=== PATIENT | female | born 1950 | race Caucasian/White ===

== ENCOUNTER 2025-02-25 14:21 | Inpatient (IN) | payer OTHER, MEDICARE ==
[~2025-02-25] VITALS: Ht 167.6 cm; Wt 83.5 kg
[2025-02-25 14:25] VITALS: O2SAT 100
[2025-02-25] MEDS: MAGNESIUM/ALUMINUM HYDROXIDE/SIMETHICONE 30ML UDC PO ONE (14:37)
[2025-02-25] MEDS: ONDANSETRON HCL 4MG/2ML INJ IV ONE (14:52)
[2025-02-25] MEDS: KETOROLAC 15MG/ML VIAL IV ONE (14:53)
[2025-02-25 15:53] LABS: BASOPHILS % 0.4 % (0.0-2.0); EOSINOPHILS % 0.6 % (0.0-5.0); HEMATOCRIT. 39.0 % (36.0-48.0); HEMOGLOBIN. 12.8 g/dL (12.0-16.0); LYMPHOCYTES % 30.3 % (20.0-50.0); MEAN PLATELET VOLUME 7.7 fl (7.4-10.4); MONOCYTES % 4.5 % (2.0-8.0); NEUTROPHILS % 64.2 % (40.0-76.0); PLATELET 213 x1000/uL (130-400); RED BLOOD CELL COUNT 4.56 mill/uL (4.2-5.4); RED CELL DISTRIBUTION WIDTH 14.0 % (11.6-14.6)
[2025-02-25 16:05] LABS: CREATININE 1.5 mg/dL (0.6-1.0)
[2025-02-25 16:06] LABS: ETHANOL BLOOD < 10 mg/dL (<10); PROTEIN TOTAL 6.5 g/dL (6.0-8.3); UREA NITROGEN BLOOD 24 mg/dL (9-23)
[2025-02-25 16:07] LABS: ASPARTATE AMINOTRANSFERASE 19 IU/L (<34)
[2025-02-25 16:08] LABS: BILIRUBIN DIRECT 0.1 mg/dL (<=3.0); BILIRUBIN TOTAL 0.6 mg/dL (0.1-1.0); TROPONIN I HIGH SENSITIVITY < 4 ng/L (3.0-34)
[2025-02-25] MEDS: MORPHINE SULFATE 4 MG/ML INJ (FOR IV/IM USE) IV ONE (18:53)
[2025-02-25] MEDS: KETOROLAC 30MG/ML VIAL IV ONE (18:53)
[2025-02-25 18:59] LABS: CLARITY URINE CLEAR (CLEAR); COLOR URINE YELLOW (YELLOW); GLUCOSE URINE NEGATIVE (NEGATIVE); KETONES URINE TRACE (NEGATIVE); LEUKOCYTE ESTERASE URINE 1+ (NEGATIVE); NITRITE URINE NEGATIVE (NEGATIVE); OCCULT BLOOD URINE TRACE (NEGATIVE); PH URINE 5.5 (4.5-8.0); PROTEIN URINE NEGATIVE (NEGATIVE); SPECIFIC GRAVITY URINE 1.026 (1.005-1.030); UROBILINOGEN URINE 1.0 E.U./dL (0.2-1.0)
[2025-02-25 19:07] LABS: *AMPHETAMINES SCREEN URINE NEGATIVE (NEGATIVE)
[2025-02-25 19:08] LABS: *BARBITURATES SCREEN URINE NEGATIVE (NEGATIVE); *BENZODIAZEPINES SCREEN URINE NEGATIVE (NEGATIVE); *COCAINE SCREEN URINE NEGATIVE (NEGATIVE); CANNABINOID URINE SCREEN NEGATIVE (NEGATIVE); ECSTASY MDMA SCREEN URINE NEGATIVE (NEGATIVE); METHADONE URINE SCREEN NEGATIVE (NEGATIVE); OPIATES URINE SCREEN NEGATIVE (NEGATIVE); PHENCYCLIDINE URINE SCREEN NEGATIVE (NEGATIVE)
[2025-02-25 19:18] LABS: BACTERIA URINE NONE SEEN; SQUAMOUS EPITHELIAL CELL URINE FEW /lpf (RARE/1+)
[2025-02-25] MEDS ORDERED: CEFTRIAXONE 2GM/50ML 50 ML IV ONE (19:30)
[2025-02-25] MEDS ORDERED: ONDANSETRON HCL 4MG/2ML INJ IV PRN (20:00)
[2025-02-25] MEDS ORDERED: IPRATROPIUM/ALBUTEROL 0.5-3(2.5)MG/3ML NEB HHN PRN (20:00)
[2025-02-25 20:10] VITALS: BP 154/90; PULSE 57; RESP 18; TEMP 36.8; TEMP 36.8072; O2SAT 98
[2025-02-25] MEDS: LACTATED RINGERS 1,000 ML IV SCH (21:20)
[2025-02-25] MEDS ORDERED: DEXTROSE 50% WATER 50ML SYRINGE IV PRN (23:00)
[2025-02-26] VITALS (7 sets, daily range): BP systolic 112–176; BP diastolic 57–88; PULSE 52–72; RESP 16–18; TEMP 36.4–36.7; O2SAT 96–100
[2025-02-26] MEDS: AMLODIPINE 2.5MG TABLET PO SCH (00:20)
[2025-02-26] MEDS: PANTOPRAZOLE SODIUM 40 MG/VIAL IV SCH (00:21)
[2025-02-26] MEDS: MAGNESIUM 1 G PREMIX 100 ML IV SCH (00:21)
[2025-02-26] MEDS: ENOXAPARIN 40MG/0.4ML SYR SUBCUT SCH (00:22)
[2025-02-26] MEDS: KETOROLAC 15MG/ML VIAL IV PRN (01:20)
[2025-02-26 01:29] LABS: LDL CHOLESTEROL 163.0 mg/dL (5-100); TRIGLYCERIDE 133.0 mg/dL (0-150)
[2025-02-26] MEDS: CLONIDINE 0.1MG TABLET PO PRN (01:29)
[2025-02-26] MEDS ORDERED: NALOXONE HCL 0.4MG/ML VIAL IV PRN (02:30)
[2025-02-26] MEDS: MORPHINE SULFATE 2 MG/ML INJ (NOT FOR IM USE) IV PRN (03:03)
[2025-02-26] MEDS ORDERED: FAMOTIDINE 20MG/2ML VIAL IV ONE (08:00)
[2025-02-26] MEDS ORDERED: METOCLOPRAMIDE HCL 10MG/2ML VIAL ONE (08:01)
[2025-02-26] MEDS ORDERED: MIDAZOLAM HCL 2 MG/2 ML VIAL ONE (08:02)
[2025-02-26] MEDS ORDERED: PROPOFOL 200MG/20ML VIAL IV ONE (08:06)
[2025-02-26] MEDS ORDERED: FENTANYL CITRATE/PF 50MCG/ML 2ML VIAL ONE (08:06)
[2025-02-26] MEDS ORDERED: HYDROMORPHONE HCL/PF 1MG/ML INJ IV PRN (08:15)
[2025-02-26] MEDS ORDERED: FAMOTIDINE 20MG/2ML VIAL IV PRN (08:15)
[2025-02-26] MEDS ORDERED: MEPERIDINE HCL/PF 25MG/ML CPJ IV PRN (08:15)
[2025-02-26] MEDS ORDERED: ONDANSETRON HCL 4MG/2ML INJ IV PRN (08:15)
[2025-02-26] MEDS ORDERED: LABETALOL 5MG/ML 4ML INJ IV PRN (08:15)
[2025-02-26] MEDS ORDERED: HYDRALAZINE 20MG/ML VIAL IV PRN ×2 (08:15)
[2025-02-26] MEDS ORDERED: AMLODIPINE 5MG TABLET PO SCH (09:00)
[2025-02-26] MEDS: AMLODIPINE 5MG TABLET PO SCH (11:01)
[2025-02-26 11:31] LABS: BASOPHILS % 0.5 % (0.0-2.0); EOSINOPHILS % 1.2 % (0.0-5.0); HEMATOCRIT. 39.4 % (36.0-48.0); HEMOGLOBIN. 12.7 g/dL (12.0-16.0); LYMPHOCYTES % 29.0 % (20.0-50.0); MEAN PLATELET VOLUME 7.7 fl (7.4-10.4); MONOCYTES % 4.5 % (2.0-8.0); NEUTROPHILS % 64.8 % (40.0-76.0); PLATELET 176 x1000/uL (130-400); RED BLOOD CELL COUNT 4.53 mill/uL (4.2-5.4); RED CELL DISTRIBUTION WIDTH 14.5 % (11.6-14.6)
[2025-02-26 11:53] LABS: CREATININE 1.2 mg/dL (0.6-1.0)
[2025-02-26 11:54] LABS: UREA NITROGEN BLOOD 15.0 mg/dL (9-23)
[2025-02-26 11:57] LABS: T4 FREE 1.53 ng/dL (0.89-1.76)
[2025-02-26] MEDS: CEFTRIAXONE 1GM/50ML 50 ML IV SCH (15:08)
[2025-02-26] MEDS ORDERED: CEFTRIAXONE 1GM/50ML 50 ML IV SCH (20:00)
[2025-02-26] MEDS: ATORVASTATIN CALCIUM 40MG TABLET PO SCH (20:39)
[2025-02-27 04:00] VITALS: BP 139/76; PULSE 67; RESP 16; TEMP 36.6; O2SAT 98
[2025-02-27 05:09] LABS: CREATININE 1.0 mg/dL (0.6-1.0); UREA NITROGEN BLOOD 19.0 mg/dL (9-23)
[2025-02-27 05:57] LABS: BASOPHILS % 0.3 % (0.0-2.0); EOSINOPHILS % 1.9 % (0.0-5.0); HEMATOCRIT. 35.6 % (36.0-48.0); HEMOGLOBIN. 11.7 g/dL (12.0-16.0); LYMPHOCYTES % 38.8 % (20.0-50.0); MEAN PLATELET VOLUME 7.9 fl (7.4-10.4); MONOCYTES % 7.2 % (2.0-8.0); NEUTROPHILS % 51.8 % (40.0-76.0); PLATELET 161 x1000/uL (130-400); RED BLOOD CELL COUNT 4.10 mill/uL (4.2-5.4); RED CELL DISTRIBUTION WIDTH 14.4 % (11.6-14.6)
[2025-02-27 08:00] VITALS: BP 135/86; PULSE 69; RESP 16; TEMP 36.2; O2SAT 100
[2025-02-27] MEDS ORDERED: LEVO-65 MT (10:31)
[2025-02-27] MEDS ORDERED: IBUP-1455 MT (10:31)
[2025-02-27 11:39] VITALS: BP 130/76; PULSE 64; RESP 16; TEMP 97.8
== END 2025-02-27 12:00 | disposition home or self-care (01) | DRG 660 ==
LOC: ER 14:21 → 8EST 18:44 → EDBEDREQ 18:48 → EDBEDREQTM 18:48 → ENRESERV 22:11
PROVIDERS: ADMIT Internal Medicine; ATTEND Internal Medicine
PROC: 0T778DZ Dilation of Left Ureter with Intraluminal Device, Via Natural or Artificial Opening Endoscopic (ICD-10-PCS; principal; 2025-02-26)
DX: N13.6 Pyonephrosis (principal); N20.1 Calculus of ureter; N17.9 Acute kidney failure, unspecified; I10 Essential (primary) hypertension; I35.0 Nonrheumatic aortic (valve) stenosis; R73.03 Prediabetes; Z96.641 Presence of right artificial hip joint; Z55.6 Problems related to health literacy; Z88.5 Allergy status to narcotic agent; Z88.6 Allergy status to analgesic agent; Z79.899 Other long term (current) drug therapy
CPT/HCPCS: 36415; 74018; 74176; 76000; 80048; 80061; 80076; 80305; 80320; 81003; 82550; 82962; 83036; 83605; 83735; 83880; 84145; 84439; 84443; 84484; 85025; 93005; 96374; 96375; 99291; J0696; J1308; J1650; J1885; J2250; J2270; J2405; J2470; J2704; J2765; J3010; J3475; J7030; J7120; A4217; C2617; G0480